=== PATIENT | male | born 1995 | race Two or more races ===

== ENCOUNTER 2024-03-04 19:54 | Emergency (ER) | payer OTHER, MEDICAID ==
[~2024-03-04] VITALS: Ht 175.3 cm; Wt 81.8 kg
[2024-03-04] MEDS: baclofen 10mg tablet PO STA (21:55)
[2024-03-04] MEDS: ibuprofen tablet 400 MG TABLET PO ONE (21:55)
[2024-03-04] MEDS: LIDOcaine 5% patch TP STA (21:56)
[2024-03-04] MEDS ORDERED: IBUP-1984 PO (22:07)
[2024-03-04] MEDS ORDERED: LIDO700A32 TD (22:07)
[2024-03-04] MEDS ORDERED: BACL10TA2 PO (22:07)
[2024-03-04 22:46] VITALS: BP 134/90; PULSE 71; RESP 15; TEMP 98.6; O2SAT 98
== END 2024-03-04 22:48 | disposition home or self-care (01) ==
LOC: ER 19:54
DX: M54.2 Cervicalgia (principal); Z88.1 Allergy status to other antibiotic agents; Z88.8 Allergy status to other drugs, medicaments and biological substances; V89.2XXA Person injured in unspecified motor-vehicle accident, traffic, initial encounter; Y93.89 Activity, other specified; Y92.410 Unspecified street and highway as the place of occurrence of the external cause; Y99.8 Other external cause status
CPT/HCPCS: 99284; L0172